=== PATIENT | female | born 1995 | race Caucasian/White ===

== ENCOUNTER 2018-09-09 18:38 | Outpatient (CLI) | payer OTHER ==
[2018-09-09 21:11] LABS: ADD MAN DIFF? NO
[2018-09-09 21:15] LABS: BASOPHILS % 0.3 % (0.0-2.0); EOSINOPHILS # 0.2 10^3/ul (0.0-0.5); EOSINOPHILS % 1.6 % (0.0-7.0); HEMATOCRIT 33.3 % (37.0-47.0); HEMOGLOBIN 11.2 g/dl (12.0-16.0); LYMPHOCYTES # 2.4 10^3/ul (0.8-2.9); LYMPHOCYTES % 19.9 % (18.0-55.0); MEAN CORPUSCULAR HEMOGLOBIN 28.4 pg (29.0-33.0); MEAN CORPUSCULAR HGB CONC 33.6 g/dl (32.0-37.0); MEAN CORPUSCULAR VOLUME 84.3 fl (72.0-104.0); MEAN PLATELET VOLUME 10.5 fl (7.4-10.4); MONOCYTE # 0.4 10^3/ul (0.3-0.9); MONOCYTES % 3.6 % (0.0-13.0); NEUTROPHIL # 8.8 10^3/ul (1.6-7.5); NEUTROPHILS % 73.6 % (30.0-74.0); PLATELET COUNT 224 10^3/UL (140-415); RED BLOOD COUNT 3.95 10^6/ul (4.20-5.40); RED CELL DISTRIBUTION WIDTH 13.6 % (11.5-14.5)
[2018-09-09 21:24] LABS: ADD UMIC NO; UR ASCORBIC ACID NEGATIVE (NEGATIVE); UR BILIRUBIN (Dip) NEGATIVE (NEGATIVE); UR BLOOD (Dip) NEGATIVE (NEGATIVE); UR CLARITY CLEAR (CLEAR); UR COLOR YELLOW (YELLOW); UR GLUCOSE (Dip) NEGATIVE (NEGATIVE); UR KETONES (Dip) TRACE mg/dL (NEGATIVE); UR LEUKOCYTE ESTERASE (Dip) NEGATIVE Leu/ul (NEGATIVE); UR NITRITE (Dip) NEGATIVE (NEGATIVE); UR SPECIFIC GRAVITY (Dip) 1.019 (1.003-1.030); UR TOTAL PROTEIN (Dip) NEGATIVE (NEGATIVE); UR UROBILINOGEN (Dip) NEGATIVE (NEGATIVE)
== END 2018-09-09 22:25 | disposition home or self-care (01) ==
LOC: OBT 18:38 → L-D 18:38 → OBT 22:25
DX: O26.892 Other specified pregnancy related conditions, second trimester (principal); R10.2 Pelvic and perineal pain; Z3A.21 21 weeks gestation of pregnancy
CPT/HCPCS: 76815; 76817; 81003; 85025

== ENCOUNTER 2018-12-18 09:16 | Outpatient (CLI) | payer OTHER ==
[2018-12-18 10:12] LABS: ADD UMIC YES; UR ASCORBIC ACID NEGATIVE (NEGATIVE); UR BACTERIA FEW /HPF (NONE SEEN); UR BILIRUBIN (Dip) NEGATIVE (NEGATIVE); UR BLOOD (Dip) NEGATIVE (NEGATIVE); UR CLARITY SLIGHTLY CLOUDY (CLEAR); UR COLOR YELLOW (YELLOW); UR GLUCOSE (Dip) NEGATIVE (NEGATIVE); UR KETONES (Dip) TRACE mg/dL (NEGATIVE); UR LEUKOCYTE ESTERASE (Dip) 1+ Leu/ul (NEGATIVE); UR MUCUS FEW /HPF (NONE SEEN); UR NITRITE (Dip) NEGATIVE (NEGATIVE); UR RBC 0 /HPF (0-5); UR SPECIFIC GRAVITY (Dip) 1.014 (1.003-1.030); UR SQUAMOUS EPITHELIAL CELL FEW /HPF (FEW); UR TOTAL PROTEIN (Dip) NEGATIVE (NEGATIVE); UR UROBILINOGEN (Dip) NEGATIVE (NEGATIVE); UR WBC 3 /HPF (0-5)
[2018-12-18 10:33] LABS: RUPTURE FETAL MEMBRANES NEGATIVE (NEGATIVE)
[2018-12-18] MEDS: ACETAMINOPHEN 500 MG TAB PO (11:38)
== END 2018-12-18 12:43 | disposition home or self-care (01) ==
LOC: OBT 09:16 → L-D 09:16 → OBT 12:43
DX: O62.9 Abnormality of forces of labor, unspecified (principal); Z3A.36 36 weeks gestation of pregnancy
CPT/HCPCS: 76818; 81001; 84112

== ENCOUNTER 2018-12-23 20:27 | Inpatient (IN) | payer OTHER ==
[2018-12-23] MEDS: LACTATED RINGER'S 1,000 ML IV ×2 (21:37→23:09)
[2018-12-23 21:54] LABS: ADD UMIC YES; UR ASCORBIC ACID 20 mg/dL (NEGATIVE); UR BILIRUBIN (Dip) NEGATIVE (NEGATIVE); UR BLOOD (Dip) NEGATIVE (NEGATIVE); UR CLARITY CLEAR (CLEAR); UR COLOR YELLOW (YELLOW); UR GLUCOSE (Dip) NEGATIVE (NEGATIVE); UR KETONES (Dip) 1+ mg/dL (NEGATIVE); UR LEUKOCYTE ESTERASE (Dip) NEGATIVE Leu/ul (NEGATIVE); UR MUCUS MODERATE /HPF (NONE SEEN); UR NITRITE (Dip) NEGATIVE (NEGATIVE); UR RBC 2 /HPF (0-5); UR SPECIFIC GRAVITY (Dip) 1.026 (1.003-1.030); UR SQUAMOUS EPITHELIAL CELL FEW /HPF (FEW); UR TOTAL PROTEIN (Dip) 1+ mg/dl (NEGATIVE); UR UROBILINOGEN (Dip) 1+ mg/dL (NEGATIVE); UR WBC 2 /HPF (0-5)
[2018-12-23] MEDS: ACETAMINOPHEN 325 MG TAB PO (23:09)
[2018-12-23 23:23] LABS: AMPHETAMINE/METHAMPHETAMINE NEGATIVE (NEGATIVE); BARBITURATES NEGATIVE (NEGATIVE); BENZODIAZEPINES NEGATIVE (NEGATIVE); CANNABINOIDS NEGATIVE (NEGATIVE); COCAINE NEGATIVE (NEGATIVE); OPIATES NEGATIVE (NEGATIVE)
[2018-12-24] MEDS: TERBUTALINE 1 MG/ML INJ SC (00:54)
[2018-12-24] MEDS: BETAMET NA PHOS/AC(6 MG/ML) 2 ML INJ SYG IM (01:50)
[2018-12-24] MEDS: OXYCODONE/ACETAMINOPHEN (5/325) TAB PO (04:10)
[2018-12-24] MEDS: LACTATED RINGER'S 1,000 ML IV ×2 (04:11→07:57)
[2018-12-24 05:15] LABS: ADD MAN DIFF? NO
[2018-12-24 05:29] LABS: WHITE BLOOD COUNT 9.6 10^3/ul (4.8-10.8)
[2018-12-24 05:29] LABS: BASOPHILS % 0.3 % (0.0-2.0); EOSINOPHILS # 0.1 10^3/ul (0.0-0.5); EOSINOPHILS % 0.7 % (0.0-7.0); HEMATOCRIT 35.3 % (37.0-47.0); LYMPHOCYTES # 1.9 10^3/ul (0.8-2.9); LYMPHOCYTES % 19.4 % (15.0-51.0); MEAN CORPUSCULAR HEMOGLOBIN 25.8 pg (29.0-33.0); MEAN CORPUSCULAR HGB CONC 31.2 g/dl (32.0-37.0); MEAN CORPUSCULAR VOLUME 82.7 fl (82.0-101.0); MEAN PLATELET VOLUME 12.2 fl (7.4-10.4); MONOCYTE # 0.5 10^3/ul (0.3-0.9); MONOCYTES % 5.5 % (0.0-11.0); NEUTROPHIL # 7.1 10^3/ul (1.6-7.5); NEUTROPHILS % 73.6 % (39.0-77.0); PLATELET COUNT 228 10^3/UL (140-415); RED BLOOD COUNT 4.27 10^6/ul (4.20-5.40); RED CELL DISTRIBUTION WIDTH 14.6 % (11.5-14.5)
[2018-12-24 05:39] LABS: PROTIME 12.3 Sec (11.9-14.9)
[2018-12-24 05:40] LABS: PARTIAL THROMBOPLASTIN TIME 30.1 Sec (23.0-35.0)
[2018-12-24 05:49] LABS: ALANINE AMINOTRANSFERASE 66 IU/L (13-69); ALBUMIN 3.3 g/dl (3.3-4.9); ALBUMIN/GLOBULIN RATIO 1.13; ALKALINE PHOSPHATASE 247 IU/L (42-121); ANION GAP 11 (5-13); ASPARTATE AMINO TRANSFERASE 104 IU/L (15-46); BILIRUBIN,INDIRECT 0.2 mg/dl (0-1.1); BILIRUBIN,TOTAL 0.2 mg/dl (0.2-1.3); BLOOD UREA NITROGEN 8 mg/dl (7-20); CALCIUM 9.6 mg/dl (8.4-10.2); CARBON DIOXIDE 21 mmol/L (21-31); CHLORIDE 106 mmol/L (97-110); CREATININE 0.49 mg/dl (0.44-1.00); Estimated GFR > 60 mL/min (>60); GLUCOSE 51 mg/dl (70-220); SODIUM 138 mmol/L (135-144); TOTAL PROTEIN 6.2 g/dl (6.1-8.1); URIC ACID 4.8 mg/dl (3.1-7.9)
[2018-12-24] MEDS ORDERED: MISOPROSTOL 200 MCG TAB PR ×2 (07:30→09:30)
[2018-12-24] MEDS ORDERED: AMPICILLIN 2 GM/NS (PMX) 100 ML IV (07:30)
[2018-12-24] MEDS ORDERED: METHYLERGONOVINE 0.2 MG INJ IM ×2 (07:30→09:30)
[2018-12-24] MEDS ORDERED: CARBOPROST 250 MCG INJ IM ×2 (07:30→09:30)
[2018-12-24] MEDS ORDERED: CEFAZOLIN 2 GM/50 ML (PMX) 50 ML IVPB (07:31)
[2018-12-24] MEDS: ONDANSETRON 4 MG INJ IV (07:48)
[2018-12-24] MEDS: METOCLOPRAMIDE 10 MG INJ IV (07:48)
[2018-12-24] MEDS ORDERED: HYDROmorphONE 1 MG/5 ML IV SYRINGE IV ×2 (08:00)
[2018-12-24] MEDS ORDERED: METOCLOPRAMIDE 10 MG INJ IV (08:00)
[2018-12-24] MEDS ORDERED: KETOROLAC 30 MG INJ IV (08:00)
[2018-12-24] MEDS ORDERED: DIPHENHYDRAMINE 50 MG INJ IV ×2 (08:00)
[2018-12-24] MEDS ORDERED: HYDROmorphONE 0.5 MG/0.5 ML SYG IV ×2 (08:00)
[2018-12-24] MEDS ORDERED: NALOXONE (0.4 MG/ML) INJ IV (08:00)
[2018-12-24] MEDS ORDERED: ALBUTEROL 0.083% (NEB) 2.5 MG/3 ML AMP HHN (08:00)
[2018-12-24] MEDS: AZITHROMYCIN 500MG/NS (PMX) 250 ML IVPB (08:00)
[2018-12-24] MEDS ORDERED: ONDANSETRON 4 MG INJ IV ×2 (08:00)
[2018-12-24] MEDS ORDERED: FENTAnyl 50 MCG/ML VIAL IV ×2 (08:00)
[2018-12-24] MEDS ORDERED: PHENYLephrine (100 MCG/ML) 10ML SYG (08:16)
[2018-12-24] MEDS ORDERED: morphine SULFATE/PF (10 MG/10 ML) INJ (08:16)
[2018-12-24] MEDS ORDERED: OXYTOCIN 30 UNITS/LR 500 ML BAG IV (08:16)
[2018-12-24] MEDS ORDERED: EPHEDrine 25 MG/5 ML SYG (08:16)
[2018-12-24] MEDS ORDERED: OXYTOCIN 30 UNITS/LR 500 ML IV (09:30)
[2018-12-24] MEDS ORDERED: NACL 0.9% 3 ML SYG IV (09:30)
[2018-12-24] MEDS: CEFAZOLIN 2 GM/50 ML (PMX) 50 ML IVPB (09:52)
[2018-12-24] MEDS: OXYTOCIN 30 UNITS/LR 500 ML IV ×2 (10:49→18:14)
[2018-12-24 11:28] LABS: HEPATITIS B SURFACE ANTIGEN NEGATIVE (NEGATIVE)
[2018-12-24] MEDS ORDERED: IBUPROFEN 600 MG TAB PO (12:00)
[2018-12-24] MEDS: LANOLIN HPA 1 PKT TOP (18:07)
[2018-12-25] MEDS: OXYTOCIN 30 UNITS/LR 500 ML IV (00:58)
[2018-12-25] MEDS: LACTATED RINGER'S 1,000 ML IV (06:27)
[2018-12-25] MEDS: KETOROLAC 30 MG INJ IV (06:39)
[2018-12-25 08:00] LABS: ADD MAN DIFF? NO
[2018-12-25 08:03] LABS: WHITE BLOOD COUNT 10.3 10^3/ul (4.8-10.8)
[2018-12-25 08:03] LABS: BASOPHILS % 0.2 % (0.0-2.0); EOSINOPHILS # 0.1 10^3/ul (0.0-0.5); EOSINOPHILS % 0.5 % (0.0-7.0); HEMATOCRIT 29.9 % (37.0-47.0); HEMOGLOBIN 9.4 g/dl (12.0-16.0); LYMPHOCYTES # 1.6 10^3/ul (0.8-2.9); LYMPHOCYTES % 15.3 % (15.0-51.0); MEAN CORPUSCULAR HEMOGLOBIN 25.3 pg (29.0-33.0); MEAN CORPUSCULAR HGB CONC 31.4 g/dl (32.0-37.0); MEAN CORPUSCULAR VOLUME 80.6 fl (82.0-101.0); MEAN PLATELET VOLUME 11.4 fl (7.4-10.4); MONOCYTE # 0.6 10^3/ul (0.3-0.9); MONOCYTES % 6.2 % (0.0-11.0); NEUTROPHIL # 7.9 10^3/ul (1.6-7.5); NEUTROPHILS % 77.1 % (39.0-77.0); PLATELET COUNT 172 10^3/UL (140-415); RED BLOOD COUNT 3.71 10^6/ul (4.20-5.40); RED CELL DISTRIBUTION WIDTH 14.6 % (11.5-14.5)
[2018-12-25] MEDS ORDERED: ALBUTEROL HFA 8 GM INHALER INH (08:30)
[2018-12-25] MEDS: IBUPROFEN 600 MG TAB PO ×2 (12:00→17:41)
[2018-12-25] MEDS: OXYCODONE/ACETAMINOPHEN (5/325) TAB PO (18:46)
[2018-12-25] MEDS: FERROUS SULFATE (EC) 325 MG TAB PO (21:52)
[2018-12-26] MEDS: IBUPROFEN 600 MG TAB PO ×5 (00:11→23:49)
[2018-12-26] MEDS: OXYCODONE/ACETAMINOPHEN (5/325) TAB PO ×3 (02:47→21:15)
[2018-12-26] MEDS: FERROUS SULFATE (EC) 325 MG TAB PO ×2 (08:47→21:15)
[2018-12-27] MEDS: OXYCODONE/ACETAMINOPHEN (5/325) TAB PO (05:03)
[2018-12-27] MEDS: IBUPROFEN 600 MG TAB PO ×2 (06:23→12:36)
[2018-12-27] MEDS: FERROUS SULFATE (EC) 325 MG TAB PO (09:02)
[2018-12-27 14:48] LABS: RAPID PLASMA REAGIN NONREACTIVE (NR)
== END 2018-12-27 17:45 | disposition home or self-care (01) | DRG 786 ==
LOC: OBT 20:27 → L-D 20:29 → PP1 12-24 11:52
PROC: 10D00Z1 Extraction of Products of Conception, Low, Open Approach (ICD-10-PCS; principal; 2018-12-24 07:30)
PROC: 3E033VJ Introduction of Other Hormone into Peripheral Vein, Percutaneous Approach (ICD-10-PCS; 2018-12-24 07:30)
DX: O65.5 Obstructed labor due to abnormality of maternal pelvic organs (principal); O60.13X0 Preterm labor second trimester with preterm delivery third trimester, not applicable or unspecified; D62 Acute posthemorrhagic anemia; O99.02 Anemia complicating childbirth; O34.211 Maternal care for low transverse scar from previous cesarean delivery; Z3A.36 36 weeks gestation of pregnancy; Z37.0 Single live birth
CPT/HCPCS: 36415; 76705; 76818; 80053; 80307; 81001; 84560; 85025; 85610; 85730; 86592; 86850; 86900; 86901; 87086; 87340; 96360; 96361; 96372; 99464